=== PATIENT | male | born 1960 | race Caucasian/White ===

== ENCOUNTER 2016-09-12 09:09 | Emergency (ER) | payer OTHER ==
[~2016-09-12] VITALS: Ht 195.6 cm; Wt 107.2 kg
[~2016-09-12 09:09] MED LIST: ELIMITE 5% CREA60 GM TP
[2016-09-12] MEDS ORDERED: KEFLEX500 MG PO (09:53)
[2016-09-12 10:12] VITALS: BP 158/96
== END 2016-09-12 10:13 | disposition home or self-care (01) ==
LOC: EME 09:09
PROC: 3E0234Z Introduction of Serum, Toxoid and Vaccine into Muscle, Percutaneous Approach (ICD-10-PCS; principal; 2016-09-12)
DX: S61.411A Laceration without foreign body of right hand, initial encounter (principal); W26.0XXA Contact with knife, initial encounter; Z23 Encounter for immunization
CPT/HCPCS: 99281; 99284

== ENCOUNTER 2017-04-04 16:53 | Emergency (ER) | payer OTHER ==
[~2017-04-04] VITALS: Ht 195.6 cm; Wt 105.6 kg
[~2017-04-04 16:53] MED LIST changes: +KEFLEX500 MG PO
[2017-04-04 17:58] LABS: INFLUENZA A VIRAL ANTIGEN NEGATIVE; INFLUENZA B VIRAL ANTIGEN NEGATIVE
[2017-04-04 19:17] LABS: HEMATOCRIT 46.3 % (38.0-50.0); MCH 33.3 PG (29.0-34.0); MCV 95.3 FL (86-99); MEAN PLAT.VOLUME 10.3 uM^3 (9.0-12.4); PLATELET COUNT 184 K/uL (156-360); RBC DIS.WIDTH-CV 11.9 % (11.8-14.6); RBC DIS.WIDTH-SD 42.2 % (39-53); RED BLOOD COUNT 4.86 M/uL (4.00-5.50); WHITE BLOOD COUNT 9.2 K/uL (4.1-10.2)
[2017-04-04 19:49] LABS: CHLORIDE 104 mEq/L (99-109); POTASSIUM 3.4 mEq/L (3.7-5.4); SODIUM 139 mEq/L (136-147)
[2017-04-04 19:51] LABS: GLUCOSE 83 mg/dL (70-99)
[2017-04-04 19:52] LABS: ANION GAP 12 MEQ/L (2-14)
[2017-04-04 19:54] LABS: GFR ESTIMATE (CALCULATED) > 59 mL/min/
[2017-04-04 19:55] LABS: UREA NITROGEN (BUN) 8 mg/dL (9-23)
[2017-04-04] MEDS ORDERED: ZITHROMAX Z-PA250 MG PO (20:05)
[2017-04-04] MEDS ORDERED: ROBITUSSIN AC,T10 ML PO (20:05)
[2017-04-04 20:22] VITALS: BP 177/105
== END 2017-04-04 20:44 | disposition home or self-care (01) ==
LOC: EXP 16:53 → EME 16:53 → EXP 20:44
DX: J20.9 Acute bronchitis, unspecified (principal); R03.0 Elevated blood-pressure reading, without diagnosis of hypertension; F17.200 Nicotine dependence, unspecified, uncomplicated
CPT/HCPCS: 71020; 80048; 85027; 87502; 99281; 99284

== ENCOUNTER 2017-07-13 18:16 | Emergency (ER) | payer OTHER ==
[~2017-07-13] VITALS: Ht 195.6 cm; Wt 108.4 kg
[~2017-07-13 18:16] MED LIST changes: +ROBITUSSIN AC,T10 ML PO; +ZITHROMAX Z-PA250 MG PO
[2017-07-13 18:49] VITALS: BP 162/110
[2017-07-13] MEDS ORDERED: NORCO 5/3251 TABLET PO (21:00)
[2017-07-13] MEDS ORDERED: PEN-VEE K,VEET500 MG PO (21:00)
== END 2017-07-13 21:34 | disposition home or self-care (01) ==
LOC: EME 18:16
PROC: 3E0T3BZ Introduction of Anesthetic Agent into Peripheral Nerves and Plexi, Percutaneous Approach (ICD-10-PCS; principal; 2017-07-13)
DX: K04.7 Periapical abscess without sinus (principal); K02.9 Dental caries, unspecified; F17.200 Nicotine dependence, unspecified, uncomplicated
CPT/HCPCS: 99281; 99284

== ENCOUNTER 2017-09-22 20:19 | Inpatient (IN) | payer SELFPAY ==
[~2017-09-22] VITALS: Ht 195.6 cm; Wt 112.5 kg
[~2017-09-22 20:19] MED LIST changes: +NORCO 5/3251 TABLET PO; +PEN-VEE K,VEET500 MG PO
[2017-09-22 20:55] LABS: HEMATOCRIT 47.9 % (38.0-50.0); HEMOGLOBIN 17.1 G/DL (12.5-16.6); MCH 35.9 PG (29.0-34.0); MCHC 35.7 G/DL (30.0-36.0); MCV 100.6 FL (86-99); PLATELET COUNT 111 K/uL (156-360); RBC DIS.WIDTH-CV 11.9 % (11.8-14.6); RBC DIS.WIDTH-SD 45.1 % (39-53); RED BLOOD COUNT 4.76 M/uL (4.00-5.50); WHITE BLOOD COUNT 12.7 K/uL (4.1-10.2)
[2017-09-22 21:13] LABS: CHLORIDE 97 mEq/L (99-109); POTASSIUM 3.4 mEq/L (3.7-5.4); SODIUM 137 mEq/L (136-147)
[2017-09-22 21:15] LABS: GLUCOSE 181 mg/dL (70-99)
[2017-09-22 21:18] LABS: SERUM ETHYL ALCOHOL < 10 mg/dL
[2017-09-22 21:19] LABS: GFR ESTIMATE (CALCULATED) > 59 mL/min/ (58.99-99999)
[2017-09-22 21:20] LABS: UREA NITROGEN (BUN) 11 mg/dL (9-23)
[2017-09-22 21:25] LABS: TROP-I INTERPRETATION NEGATIVE; TROPONIN-I 0.02 ng/mL (0.0-0.30)
[2017-09-22 23:10] LABS: APPEARANCE CLEAR ((CLEAR)); BILIRUBIN NEGATIVE; BLOOD LARGE; COLOR AMBER ((YELLOW)); GLUCOSE (STRIP) NEGATIVE; KETONES 5; LEUKOCYTES NEGATIVE; NITRITE NEGATIVE; PROTEIN (STRIP) >=500; SPECIFIC GRAVITY 1.025 (1.000-1.030)
[2017-09-22 23:14] LABS: BACTERIA RARE /HPF; EPITHELIAL CELLS NONE SEEN /HPF; MUCUS TRACE /LPF; RED BLOOD CELLS 0-5 /HPF (0-5); UCUL ADDED? NO; WHITE BLOOD CELLS 0-5 /HPF (0-5)
[2017-09-22 23:20] LABS: AMPHETAMINE NEGATIVE (500 ng/mL); BARBITURATES NEGATIVE (200 ng/mL); BENZODIAZEPINES PRESUMPTIVE POSITIVE (150 ng/mL); BUPRENORPHINE NEGATIVE (10 ng/mL); COCAINE PRESUMPTIVE POSITIVE (150 ng/mL); METHADONE NEGATIVE (200 ng/mL); METHAMPHETAMINE NEGATIVE (500 ng/mL); OPIATES (MORPHINE) NEGATIVE (100 ng/mL); OXYCODONE NEGATIVE (100 ng/mL); PHENCYCLIDINE NEGATIVE (25 ng/mL); PROPOXYPHENE NEGATIVE (300 ng/mL); THC CANNABINOIDS NEGATIVE (50 ng/mL); TRICYCLIC ANTIDEPRESSANTS NEGATIVE (300 ng/mL)
[2017-09-22 23:48] LABS: BENZODIAZEPINES, URINE SCREEN Negative (200 ng/mL)
[2017-09-23 02:04] LABS: ALBUMIN 4.2 g/dL (3.2-4.8)
[2017-09-23 02:05] LABS: MAGNESIUM 1.5 mg/dL (1.3-2.7)
[2017-09-23 02:07] LABS: TOTAL PROTEIN 7.9 g/dL (6.4-8.3)
[2017-09-23 02:09] LABS: TOTAL BILIRUBIN 2.3 mg/dL (0.0-1.0)
[2017-09-23 02:10] LABS: ALKALINE PHOSPHATASE 116 IU/L (3-129)
[2017-09-23 02:12] LABS: AST (GOT) 83 IU/L (2-34); DIRECT BILIRUBIN 1.3 mg/dL (0.0-0.3)
[2017-09-23 02:13] LABS: ALT (GPT) 84 IU/L (3-49); LIPASE 564 U/L (1.0-51.0)
[2017-09-23 03:15] VITALS: BP 140/89
[2017-09-23 03:33] LABS: HEMATOCRIT 40.1 % (38.0-50.0); HEMOGLOBIN 14.4 G/DL (12.5-16.6); MCH 35.9 PG (29.0-34.0); MCHC 35.9 G/DL (30.0-36.0); PLATELET COUNT 84 K/uL (156-360); RBC DIS.WIDTH-SD 44.9 % (39-53); RED BLOOD COUNT 4.01 M/uL (4.00-5.50); WHITE BLOOD COUNT 10.8 K/uL (4.1-10.2)
[2017-09-23 03:39] LABS: ALBUMIN 3.5 g/dL (3.2-4.8)
[2017-09-23 03:40] LABS: CHLORIDE 102 mEq/L (99-109); POTASSIUM 3.7 mEq/L (3.7-5.4); SODIUM 136 mEq/L (136-147)
[2017-09-23 03:44] LABS: GLUCOSE 110 mg/dL (70-99); TOTAL PROTEIN 6.2 g/dL (6.4-8.3)
[2017-09-23 03:45] LABS: ALKALINE PHOSPHATASE 92 IU/L (3-129)
[2017-09-23 03:46] LABS: CREATININE 0.9 mg/dL (0.6-1.3); GFR ESTIMATE (CALCULATED) > 59 mL/min/ (58.99-99999)
[2017-09-23 03:47] LABS: AST (GOT) 67 IU/L (2-34); UREA NITROGEN (BUN) 11 mg/dL (9-23)
[2017-09-23 03:48] LABS: ALT (GPT) 66 IU/L (3-49)
[2017-09-23 03:49] LABS: TROP-I INTERPRETATION INDETERMINATE; TROPONIN-I 0.38 ng/mL (0.0-0.30)
[2017-09-23 05:34] LABS: HDL CHOLESTEROL 109 MG/DL (Desirable>=40); LDL CHOLESTEROL 74 mg/dL (Desirable<100); NON-HDL CHOLESTEROL 91 mg/dL (Desirable<160); TOTAL CHOLESTEROL 200 mg/dL (Desirable<200); TRIGLYCERIDES 84 MG/DL (Normal: <150)
[2017-09-23 06:00] VITALS: BP 139/87
[2017-09-23 08:45] LABS: THYROTROPIN (TSH) 0.95 MIU/L (0.4-5.5)
[2017-09-23 09:08] VITALS: BP 135/93
[2017-09-23 09:47] LABS: TROP-I INTERPRETATION INDETERMINATE
[2017-09-23 11:55] VITALS: BP 124/78
[2017-09-23 16:45] VITALS: BP 140/101
[2017-09-23 19:00] VITALS: BP 147/74
[2017-09-24] VITALS (7 sets, daily range): BP systolic 120–141; BP diastolic 79–95
[2017-09-24 05:21] LABS: BASOPHIL (%) 0.6 % (0-1); BASOPHIL COUNT 0.1 K/uL (0-0.1); EOSINOPHIL (%) 1.2 % (0-5); EOSINOPHIL COUNT 0.1 K/uL (0-0.3); HEMATOCRIT 37.6 % (38.0-50.0); HEMOGLOBIN 12.5 G/DL (12.5-16.6); IMMATURE GRANULOCYTE (%) 0.6 % (0.0-0.7); LYMPHOCYTE (%) 20.1 % (15-42); LYMPHOCYTE COUNT 1.7 K/uL (1.0-2.8); MCH 34.2 PG (29.0-34.0); MCHC 33.2 G/DL (30.0-36.0); MONOCYTE (%) 11.3 % (3-12); NEUTROPHIL (%) 66.2 % (45-76); NEUTROPHIL COUNT 5.6 K/uL (1.8-6.4); PLATELET COUNT 76 K/uL (156-360); RBC DIS.WIDTH-CV 12.2 % (11.8-14.6); RBC DIS.WIDTH-SD 46.7 % (39-53); RED BLOOD COUNT 3.65 M/uL (4.00-5.50); WHITE BLOOD COUNT 8.4 K/uL (4.1-10.2)
[2017-09-24 05:26] LABS: INTER. NORMALIZED RATIO 1.1
[2017-09-24 05:38] LABS: TROP-I INTERPRETATION NEGATIVE; TROPONIN-I 0.13 ng/mL (0.0-0.30)
[2017-09-24 05:59] LABS: ALKALINE PHOSPHATASE 73 IU/L (3-129); ALT (GPT) 36 IU/L (3-49); AST (GOT) 40 IU/L (2-34); CHLORIDE 106 MEQ/L (99-109); CREATININE 0.8 MG/DL (0.6-1.3); GFR ESTIMATE (CALCULATED) > 59 mL/min/ (58.99-99999); GLUCOSE 76 mg/dL (70-99); LIPASE 237 U/L (1.0-51.0); POTASSIUM 3.4 MEQ/L (3.7-5.4); SODIUM 140 MEQ/L (136-147); TOTAL BILIRUBIN 1.2 MG/DL (0.0-1.0); TOTAL PROTEIN 5.2 G/DL (6.4-8.3); UREA NITROGEN (BUN) 13 mg/dL (9-23)
[2017-09-25 05:13] VITALS: BP 141/89
[2017-09-25 06:31] LABS: HEMATOCRIT 38.5 % (38.0-50.0); HEMOGLOBIN 12.9 G/DL (12.5-16.6); MCH 34.6 PG (29.0-34.0); MCHC 33.5 G/DL (30.0-36.0); MCV 103.2 FL (86-99); PLATELET COUNT 86 K/uL (156-360); RBC DIS.WIDTH-CV 12.2 % (11.8-14.6); RBC DIS.WIDTH-SD 46.5 % (39-53); RED BLOOD COUNT 3.73 M/uL (4.00-5.50); WHITE BLOOD COUNT 8.5 K/uL (4.1-10.2)
[2017-09-25 07:06] LABS: ALBUMIN 3.2 G/DL (3.2-4.8); ALKALINE PHOSPHATASE 75 IU/L (3-129); ALT (GPT) 33 IU/L (3-49); AST (GOT) 30 IU/L (2-34); CHLORIDE 106 MEQ/L (99-109); CREATININE 0.8 MG/DL (0.6-1.3); GFR ESTIMATE (CALCULATED) > 59 mL/min/ (58.99-99999); GLUCOSE 95 mg/dL (70-99); LIPASE 226 U/L (1.0-51.0); MAGNESIUM 1.5 mg/dl (1.3-2.7); POTASSIUM 3.4 MEQ/L (3.7-5.4); SODIUM 138 MEQ/L (136-147); TOTAL BILIRUBIN 1.1 MG/DL (0.0-1.0); TOTAL PROTEIN 5.3 G/DL (6.4-8.3); UREA NITROGEN (BUN) 7 mg/dL (9-23)
[2017-09-25 07:50] VITALS: BP 146/98
== END 2017-09-25 10:19 | disposition left against medical advice (07) | DRG 439 ==
LOC: EME → EDBD 20:19 → 3EAST 09-23 01:09 → EDOF 09-23 01:09 → ENRESERV 09-23 01:24 → 4EAST 09-23 03:00 → ENRESERV 09-24 21:21 → 3EAST 09-24 23:11
PROVIDERS: Emergency Medicine; Hospitalist; Internal Medicine Cardiovascular Disease; Internal Medicine Gastroenterology
PROC: HZ2ZZZZ Detoxification Services for Substance Abuse Treatment (ICD-10-PCS; principal; 2017-09-23)
DX: K85.20 Alcohol induced acute pancreatitis without necrosis or infection (principal); F10.239 Alcohol dependence with withdrawal, unspecified; R56.9 Unspecified convulsions; K70.10 Alcoholic hepatitis without ascites; E87.2 Acidosis; I48.0 Paroxysmal atrial fibrillation; D69.59 Other secondary thrombocytopenia; D75.89 Other specified diseases of blood and blood-forming organs; I10 Essential (primary) hypertension; K76.0 Fatty (change of) liver, not elsewhere classified; F17.210 Nicotine dependence, cigarettes, uncomplicated; F14.10 Cocaine abuse, uncomplicated; E87.6 Hypokalemia; Y90.0 Blood alcohol level of less than 20 mg/100 ml; Z86.73 Personal history of transient ischemic attack (TIA), and cerebral infarction without residual deficits
CPT/HCPCS: 70450; 71045; 74176; 76705; 80048; 80053; 80061; 80076; 81003; 83605; 83630; 83690; 83735; 84443; 84484; 84999; 85025; 85027; 85610; 87040; 87493; 87506; 93005; 95819; 99281; 99285; G0480; J1650; J2060; J2405; J3411; J7030; S0028

== ENCOUNTER 2017-09-26 21:28 | Emergency (ER) | payer SELFPAY ==
[~2017-09-26] VITALS: Ht 195.6 cm; Wt 107.2 kg
[2017-09-26 22:51] LABS: BASOPHIL (%) 0.6 % (0-1); EOSINOPHIL COUNT 0.2 K/uL (0-0.3); HEMATOCRIT 38.1 % (38.0-50.0); HEMOGLOBIN 13.4 G/DL (12.5-16.6); IMMATURE GRANULOCYTE (%) 0.6 % (0.0-0.7); LYMPHOCYTE (%) 16.7 % (15-42); LYMPHOCYTE COUNT 1.2 K/uL (1.0-2.8); MCH 35.4 PG (29.0-34.0); MCHC 35.2 G/DL (30.0-36.0); MCV 100.8 FL (86-99); MONOCYTE (%) 17.5 % (3-12); MONOCYTE COUNT 1.3 K/uL (0-0.8); NEUTROPHIL (%) 61.6 % (45-76); NEUTROPHIL COUNT 4.5 K/uL (1.8-6.4); RBC DIS.WIDTH-CV 12.1 % (11.8-14.6); RBC DIS.WIDTH-SD 45.1 % (39-53); RED BLOOD COUNT 3.78 M/uL (4.00-5.50); WHITE BLOOD COUNT 7.3 K/uL (4.1-10.2)
[2017-09-26 22:55] LABS: PLATELET COUNT 112 K/uL (156-360)
[2017-09-26 23:15] LABS: ALBUMIN 3.5 g/dL (3.2-4.8); CHLORIDE 104 mEq/L (99-109); POTASSIUM 3.1 mEq/L (3.7-5.4); SODIUM 137 mEq/L (136-147)
[2017-09-26 23:18] LABS: GLUCOSE 101 mg/dL (70-99); TOTAL PROTEIN 6.7 g/dL (6.4-8.3)
[2017-09-26 23:21] LABS: ALKALINE PHOSPHATASE 90 IU/L (3-129); SERUM ETHYL ALCOHOL < 10 mg/dL
[2017-09-26 23:22] LABS: CREATININE 0.9 mg/dL (0.6-1.3); GFR ESTIMATE (CALCULATED) > 59 mL/min/ (58.99-99999)
[2017-09-26 23:23] LABS: UREA NITROGEN (BUN) 3 mg/dL (9-23)
[2017-09-26 23:24] LABS: ALT (GPT) 37 IU/L (3-49)
[2017-09-26 23:25] LABS: LIPASE 156 U/L (1.0-51.0)
[2017-09-26 23:27] LABS: AST (GOT) 32 IU/L (2-34); DIRECT BILIRUBIN 0.6 mg/dL (0.0-0.3); TOTAL BILIRUBIN 1.1 mg/dL (0.0-1.0)
[2017-09-27 00:02] VITALS: BP 170/129
== END 2017-09-27 00:27 | disposition left against medical advice (07) ==
LOC: EME 21:28
PROVIDERS: Physician Assistant
DX: R42 Dizziness and giddiness (principal); R47.81 Slurred speech; Z53.20 Procedure and treatment not carried out because of patient's decision for unspecified reasons; E78.5 Hyperlipidemia, unspecified; I10 Essential (primary) hypertension; I48.91 Unspecified atrial fibrillation; K85.90 Acute pancreatitis without necrosis or infection, unspecified; Z86.73 Personal history of transient ischemic attack (TIA), and cerebral infarction without residual deficits; F17.200 Nicotine dependence, unspecified, uncomplicated
CPT/HCPCS: 70450; 80048; 80076; 81003; 83690; 85025; 93005; 99281; 99284; G0480